=== PATIENT | male | born 1990 | race Two or more races ===

== ENCOUNTER 2025-02-02 08:06 | Emergency (ER) | payer OTHER ==
[~2025-02-02] VITALS: Ht 172.7 cm; Wt 77.1 kg
[2025-02-02] MEDS ORDERED: DIPHTH,PERTUSS(ACELL),TET VAC 0.5 ML SYRINGE IM ONE (09:26)
[2025-02-02] MEDS ORDERED: DIPHTH,PERTUSS(ACELL),TET VAC 0.5 ML VIAL IM ONE (09:30)
== END 2025-02-02 09:46 | disposition home or self-care (01) ==
LOC: ER 08:50
DX: S60.412A Abrasion of right middle finger, initial encounter (principal); X58.XXXA Exposure to other specified factors, initial encounter; Y93.89 Activity, other specified; Y92.89 Other specified places as the place of occurrence of the external cause; Y99.9 Unspecified external cause status; Z88.0 Allergy status to penicillin; Z87.09 Personal history of other diseases of the respiratory system